=== PATIENT | male | born 1975 | race Caucasian/White ===

== ENCOUNTER 2017-02-27 09:36 | Day surgery (SDC) | payer OTHER ==
[~2017-02-27 09:36] MED LIST: BUPIVACAINE 0.5% 30 ML SDV ONE; LIDOCAINE 1% 300 MG/30 ML SDV ONE; PROPOFOL 200 MG/20 ML VIAL ONE; ceFAZolin 2 GM/DEXTROSE 100 ML IV ONE; fentaNYL 100 MCG/2 ML INJ ONE
--- NOTE | 2017-02-27 09:48 | PDHPUP ---
History & Physical Update H&P update statement: This history and physical update is based on an assessment of the patient which was completed after admission or registration (within 24 hours), but prior to the surgery/procedure. H&P update: H&P reviewed & patient examined, no change in patient's condition since H&P completed
[2017-02-27] MEDS ORDERED: MIDAZOLAM 2 MG/2 ML VIAL IVP ONE (10:07)
[2017-02-27] MEDS ORDERED: MIDAZOLAM 2 MG/2 ML VIAL ONE (10:07)
[2017-02-27] MEDS ORDERED: KETAMINE 100 MG/10 ML SYR ONE (10:11)
[2017-02-27] MEDS ORDERED: NALOXONE HCL 0.4 MG/ML INJ IVP PRN (10:48)
[2017-02-27] MEDS ORDERED: fentaNYL 100 MCG/2 ML INJ IVP PRN (10:48)
[2017-02-27] MEDS ORDERED: HYDROmorphONE/DILAUDID 1 MG/ML SYR IVP PRN (10:48)
[2017-02-27] MEDS ORDERED: ALBUTEROL 3 ML DEYVIAL IH PRN (10:48)
[2017-02-27] MEDS ORDERED: ONDANSETRON 4 MG/2 ML VIAL IVP PRN (10:48)
[2017-02-27] MEDS ORDERED: OXYCODONE/APAP 5/325 TAB PO PRN (10:48)
[2017-02-27] MEDS ORDERED: ACETAMINOPHEN 500 MG TAB PO PRN (10:48)
--- NOTE | 2017-02-27 11:08 | POSTANESTH ---
Post Anesthetic Evaluation Cardiovascular Status: Normal, Stable Respiratory Status: Normal, Stable Level of Consciousness/Mental Status: Can Participate in Eval Pain Control: Adequate, Prn Tx Ordered Nausea/Vomiting Control: Adequate, Prn Tx Ordered Complications Possibly Related to Anesthesia: None Noted
--- NOTE | 2017-02-27 11:18 | POSTOPPROG ---
Post Op Note Date of Operation: 02/27/17 Surgeon: Stefan Turner Anesthesiologist: Medardo Anesthesia: IV Sedation Pre-op Diagnosis: [facility] Post-op Diagnosis: [facility] Procedure: [facility] Findings: Inc pre-peritoneal fat Inf/Abcess present in the surg proc area at time of surgery?: No Depth: Superfical (Skin SQ)
[2017-02-27 11:20] VITALS: TEMP 97.9
[2017-02-27] MEDS ORDERED: fentaNYL 100 MCG/2 ML INJ ONE (11:22)
[2017-02-27] MEDS ORDERED: ONDANSETRON 4 MG/2 ML VIAL ONE (11:22)
[2017-02-27 12:39] VITALS: BP 108/80; PULSE 60; RESP 16; O2SAT 99
--- NOTE | 2017-02-27 23:55 | GOP ---
[f rep st] OPERATIVE REPORT DATE OF OPERATION: 02/27/2017 SURGEON: Al Turner MD ANESTHESIA: Monitored anesthetic care. ANESTHESIOLOGIST: Javan Batres MD PREOPERATIVE DIAGNOSIS: Incarcerated umbilical hernia. POSTOPERATIVE DIAGNOSIS: Incarcerated umbilical hernia. Diagnose same. PROCEDURE PERFORMED: Repair of umbilical hernia. FINDINGS: The patient had incarcerated preperitoneal fat in a 1.5 cm defect. ESTIMATED BLOOD LOSS: 20 cc INDICATIONS: 41-year-old male with a history of periumbilical bulge. Risks and benefits of the pro cedure were discussed with the patient. Questions were answered. He wished to proceed. DESCRIPTION OF PROCEDURE: The patient was placed in the supine position. After the induction of ad equate IV sedation, the patient was prepped and draped in the standard sterile fashion. Marcaine 0. 5% was injected throughout the periumbilical area for local anesthesia. An infraumbilical incision was made with a #15 blade and carried down to the subcutaneous tissue with cautery and sharp dissect ion. The sac was carefully dissected and reduced. No other defects were identified. A Marlex mesh was trimmed to fit and secured using 0 Ethibond in a mattress fashion. Prior to tying these down, the defect was loosely closed in a similar manner. The area was irrigated and hemostasis achieved w ith cautery. The umbilicus was then tacked down using 3-0 Vicryl interrupted. The subcutaneous tis cristina was approximated using 3-0 Vicryl in a running fashion. Skin was closed with 5-0 Biosyn subcuti cular. The wound was sterilely dressed. The patient was taken to the post-anesthesia care unit in stable condition. COMPLICATIONS: None. DRAINS: None. /[id number]/MODL
== END 2017-02-27 12:30 | disposition home or self-care (01) ==
LOC: FSGY 09:36
PROVIDERS: ATTEND Surgery
PROC: 0WUF0JZ Supplement Abdominal Wall with Synthetic Substitute, Open Approach (ICD-10-PCS; principal; 2017-02-27 10:45)
DX: K42.0 Umbilical hernia with obstruction, without gangrene (principal)
CPT/HCPCS: C1781; J0690; J2250; J2405; J2704; J3010